=== PATIENT | female | born 2000 | race Caucasian/White ===

== ENCOUNTER → 2020-08-04 13:31 | Outpatient (BNVA) | payer MEDICAID, SELFPAY | PROVIDERS: Family Provider Nurse Practitioner Family; PCP Nurse Practitioner Family; Visit Provider Nurse Practitioner | DX: N39.0 Urinary tract infection, site not specified (principal); R60.9 Edema, unspecified | CPT/HCPCS: 80053; 81000; 83880; 84443; 84703 ==

== ENCOUNTER 2023-10-24 08:26 | Outpatient (CLI) | payer MEDICAID, SELFPAY ==
--- NOTE | 2023-10-24 08:33 | US_ITS ---
WS: [id number] ULTRASOUND BREAST BILATERAL TECHNIQUE: Ultrasound bilateral breast focused area of concern. CLINICAL INFORMATION: BREAST LUMP/FAMILY HX OF BREAST CANCER COMPARISON: None. FINDINGS: RIGHT BREAST: Ultrasound RIGHT breast area of interest at the 3 o'clock position. Normal underlying p arenchymal tissue. No suspicious underlying lesions. LEFT BREAST: Ultrasound LEFT breast area of interest at the 3 o'clock position. Normal underlying par enchymal tissue. No suspicious underlying lesions. US/US breast BI limited* [id number] IMPRESSION: Normal bilateral breast ultrasound. No suspicious lesions.
== END 2023-10-24 08:27 | disposition home or self-care (01) ==
LOC: RAD 08:28
PROVIDERS: PCP Nurse Practitioner Family; Visit Provider Nurse Practitioner Family
DX: N63.0 Unspecified lump in unspecified breast (principal)
CPT/HCPCS: 76642

== ENCOUNTER → 2025-01-27 15:37 | Outpatient (BNVA) | payer MEDICAID, SELFPAY | PROVIDERS: PCP Nurse Practitioner Family; Visit Provider Obstetrics & Gynecology | DX: N91.2 Amenorrhea, unspecified (principal) | CPT/HCPCS: 81025 ==

== ENCOUNTER 2025-02-08 16:03 | Outpatient (CLI) | payer MEDICAID, SELFPAY ==
--- NOTE | 2025-02-08 16:11 | USR_ITS ---
PROCEDURE INFORMATION: Exam: US First Trimester, Transabdominal Exam date and time: 02/08/2025 4:22 PM Age: 24 years old Clinical indication: Screening exam; Routine US, uterus; Additional info: Dating LABS AND CLINICAL REPORTS: Last menstrual period start date: Unknown Gestational age (Established): 13 w 5 d Estimated due date (Established): 08/11/2025 TECHNIQUE: Imaging protocol: Real-time transabdominal obstetrical ultrasound of the maternal pelvis and a first trimester , less than 14 weeks 0 days, with image documentation. COMPARISON: No relevant prior studies available. FINDINGS: GESTATION: Gestation: A single viable intrauterine gestation is noted. Embryo/ cardiac activity (BPM): 155 bpm. heart rate measures 157 bpm. Extra-embryonic membranes/Placenta: Unremarkable. No subchorionic bleed. Amniotic/Chorionic fluid: Amniotic and extra-amniotic fluid are normal for gestational age. BIOMETRY: Gestational age (AUA): See [place] rump length (CRL) finding. [place]a rump length (CRL): [place]-rump length measures 7.26-7.56 cm, consistent with a 13 week 3 day-13 week 5 day gestational age. Mean sac diameter: 8.05 cm. Mean gestational sac diameter measures 8.05 cm. MATERNAL: Uterus: Unremarkable. Cervix: Unremarkable. Endocervical canal is closed. Right ovary/adnexa: Obscured by lack of adequate acoustic window. Left ovary/adnexa: Obscured by lack of adequate acoustic window. Intraperitoneal space: No intraperitoneal free fluid. US/US OB <= 14 weeks fetus [id number] IMPRESSION: 1. Single viable intrauterine with heart rate of 157 bpm and estimated gestational age of 13 weeks 3 days -13 weeks 5 days. 2. No acute sonographic abnormality.
== END 2025-02-08 16:04 | disposition home or self-care (01) ==
LOC: RAD 16:04
PROVIDERS: PCP Nurse Practitioner Family; Visit Provider Obstetrics & Gynecology
DX: Z34.91 Encounter for supervision of normal pregnancy, unspecified, first trimester (principal)
CPT/HCPCS: 76801